=== PATIENT | male | born 2000 | race Caucasian/White ===

== ENCOUNTER 2021-11-03 23:46 | Emergency (ER) | payer SELFPAY ==
[2021-11-04 00:36] LABS: Hemoglobin 15.2 g/dL (13.5-17.5); Mean Corpuscular Hemoglobin 29.4 pg (27.0-33.0); Mean Corpuscular Volume 86.5 fl (81.2-95.1); Mean Platelet Volume 9.4 fl (7.4-10.4); Platelet Count 258 10x3/uL (150-450); RBC Distribution Width 12.2 % (11.5-14.5); Red Blood Cell (RBC) Count 5.17 10x6/uL (4.32-5.72); White Blood Cell (WBC) Count 7.9 10x3/uL (3.5-10.5)
[2021-11-04 00:37] LABS: MDiff Complete? YES
[2021-11-04 00:49] LABS: Actual Bicarbonate (HCO3v) 28 mEq/L (22-28); Base Excess 1.4 mEq/L (-2.0 to +3.0); Chloride (VBG) 99 mmol/L (98-106); Hemoglobin (Hb) 16.1 g/dL (13.2-17.3); Potassium (VBG) 3.85 mmol/L (3.70-5.30); Puncture Site Other Site; Sodium 134.7 mmol/L (133-146); pH (venous) 7.37 (7.32-7.43)
[2021-11-04 00:50] LABS: ALT (SGPT) 14 U/L (8-55); AST (SGOT) 18 U/L (5-34); Albumin 4.4 g/dL (3.5-5.0); Alkaline Phosphatase 54 U/L (40-110); Anion Gap 16 mmol/L (10-20); BUN (Urea Nitrogen) 10 mg/dL (8.9-20.6); Bilirubin, Total 0.6 mg/dL (0.2-1.2); CK (CPK) 117 U/L (30-200); Calc. Creatinine Clearance 0 mL/min (70-130); Calcium 9.1 mg/dL (7.8-10.44); Carbon Dioxide 24 mmol/L (22-29); Chloride 100 mmol/L (98-107); Glucose 210 mg/dL (70-105); Lipase 4 U/L (8-78); Protein, Total 7.4 g/dL (6.0-8.3); Sodium 136 mmol/L (136-145)
[2021-11-04 01:09] LABS: Band 4 % (5-11); Eosinophils 1 % (0-10); Lymphocytes 18 % (21-51); Monocytes 15 % (0-10); Neutrophil 62 % (42-75)
[2021-11-04 01:10] LABS: Platelet Morphology Comment Appears Adequate; RBC Morphology Normal
[2021-11-04 02:06] LABS: SARS-CoV-2 NAA Rapid Test DETECTED (NotDetected)
== END 2021-11-04 01:26 | disposition home or self-care (01) ==
LOC: CSHERS 23:46
DX: U07.1 COVID-19 (principal); E11.9 Type 2 diabetes mellitus without complications; R00.0 Tachycardia, unspecified; Z79.4 Long term (current) use of insulin
CPT/HCPCS: 36415; 36416; 71045; 80053; 82010; 82550; 82805; 83690; 85025; 93005; 96360

== ENCOUNTER 2022-12-22 10:32 | Emergency (ER) | payer OTHER, SELFPAY ==
[2022-12-22] MEDS ORDERED: TETANUS, DIPHTHERIA TOX,ADULT (TDVAX) 0.5 ML VIAL IM ONE (11:18)
[2022-12-22] MEDS ORDERED: Lidocaine 1% (PF) 30 ML VIAL ONE (11:18)
== END 2022-12-22 12:13 | disposition home or self-care (01) ==
LOC: CSHERS 10:32
DX: L03.031 Cellulitis of right toe (principal); L60.0 Ingrowing nail; E10.9 Type 1 diabetes mellitus without complications
CPT/HCPCS: 11750; 90471; 90714; J2001

== ENCOUNTER 2023-02-28 14:44 | Inpatient (IN) | payer OTHER ==
[2023-02-28] MEDS ORDERED: Ondansetron PF 4 MG/2 ML Vial ONE (15:46)
[2023-02-28 15:47] LABS: #Basophils 0.1 10x3/uL (0.0-0.2); #Eosinphils 0.1 10x3/uL (0.0-0.5); #Monocytes 0.7 10x3/uL (0.0-1.1); %Basophils 0.6 % (0.0-2.0); %Eosinophils 0.9 % (0.0-6.0); %Lymphocytes 35.6 % (18.0-47.0); %Monocytes 7.6 % (0.0-10.0); %Neutrophils 54.9 % (40.0-75.0); Hematocrit 46.2 % (38.8-50.0); Hemoglobin 16.2 g/dL (13.5-17.5); Mean Corpuscular HGB CONC 35.1 g/dL (32.0-36.0); Mean Corpuscular Hemoglobin 30.6 pg (27.0-33.0); Mean Corpuscular Volume 87.2 fl (81.2-95.1); Mean Platelet Volume 9.4 fl (7.4-10.4); Platelet Count 330 10x3/uL (150-450); RBC Distribution Width 11.9 % (11.5-14.5)
[2023-02-28] MEDS ORDERED: Insulin Regular 300 UNITS/3 ML VIAL ONE (15:47)
[2023-02-28 16:01] LABS: ALT (SGPT) 14 U/L (8-55); AST (SGOT) 14 U/L (5-34); Albumin 4.5 g/dL (3.5-5.0); Alkaline Phosphatase 83 U/L (40-110); Anion Gap 26 mmol/L (10-20); BUN (Urea Nitrogen) 18 mg/dL (8.9-20.6); Bilirubin, Total 0.8 mg/dL (0.2-1.2); Calc. Creatinine Clearance 0 mL/min (70-130); Calcium 8.9 mg/dL (7.8-10.44); Carbon Dioxide 13 mmol/L (22-29); Chloride 101 mmol/L (98-107); Estimated GFR 84; Globulin 2.6 g/dL (2.4-3.5); Glucose 292 mg/dL (70-105); Lipase 5 U/L (8-78); Magnesium 1.8 mg/dL (1.6-2.6); Potassium 4.6 mmol/L (3.5-5.1); Protein, Total 7.1 g/dL (6.0-8.3); Sodium 135 mmol/L (136-145)
[2023-02-28 16:07] LABS: Troponin I Less than 0.010 ng/mL (< 0.028)
[2023-02-28 17:15] LABS: Actual Bicarbonate (HCO3v) 20.1 mEq/L (22-28); Base Excess -6.2 mEq/L (-2 - +2); Calcium, Ionized (venous) 1.19 mmol/L (1.16-1.32); Chloride (VBG) 101 mmol/L (98-106); Hematocrit-VBG 48 % (42.0-52.0); Hemoglobin (Hb) 16.4 g/dL (13.2-17.3); Potassium (VBG) 3.94 mmol/L (3.70-5.30); Puncture Site Other Site; RapidComm Collect By CBN; Sodium 134.2 mmol/L (133-146); pH (venous) 7.294 (7.32-7.43)
[2023-02-28 20:14] VITALS: BMI 19.7
[2023-02-28] MEDS ORDERED: Sodium Chloride 0.9% 1,000 ML IV PRN ×4 (20:45)
[2023-02-28] MEDS ORDERED: D5 1/2 NS w/20 mEq KCL 1,000 ML IV PRN (20:45)
[2023-02-28] MEDS ORDERED: INSULIN REGULAR IN 0.9 % NACL 100 UNITS in Premix Bag 1 BAG IVPB SCH ×2 (20:45→21:30)
[2023-02-28] MEDS ORDERED: Dextrose 5% in Water 1,000 ML IV PRN (20:45)
[2023-02-28] MEDS ORDERED: NS 0.9% w/ 20 MEQ KCL 1,000 ML/1,000 ML BAG IV PRN ×2 (20:45)
[2023-02-28] MEDS ORDERED: Electrolyte Replacement Protocol FS PRN (20:45)
[2023-02-28] MEDS ORDERED: Glucagon 1 MG/ML KIT IM PRN (20:45)
[2023-02-28] MEDS ORDERED: Dextrose 5 %-0.45 % NaCl 1,000 ML IV PRN (20:45)
[2023-02-28] MEDS ORDERED: ADD ELECTROLYTE REPLACEMENT SET TO PROFILE FS SCH (20:45)
[2023-02-28 21:29] LABS: Bilirubin Neg (Negative); Blood, Urine Negative (Negative); Clarity Clear (Clear); Glucose, Urine (Dipstick) >=1000 mg/dL (Negative); Ketone, Urine 150 mg/dL (Negative); Leukocyte Negative (Negative); Nitrite Negative (Negative); Protein, Urine (Dipstick) 30 mg/dl (Neg-Trace); Specific Gravity, Urine 1.025 (1.005-1.030); Urobilinogen Normal mg/dL (Less than 2)
[2023-02-28] MEDS ORDERED: D5 0.9% NS w/ 20 mEq KCl 1,000 ML IV SCH (21:30)
[2023-02-28] MEDS ORDERED: Dextrose 10% in Water 1,000 ML IV SCH (21:30)
[2023-02-28 22:15] LABS: Bacteria/HPF None Seen HPF (None Seen); RBC/HPF None Seen HPF (0-3); Squamous Epithelial None Seen HPF (0-3); WBC/HPF None Seen HPF (0-3)
[2023-02-28 22:28] LABS: Anion Gap 17 mmol/L (10-20); BUN (Urea Nitrogen) 12 mg/dL (8.9-20.6); Calc. Creatinine Clearance 120 mL/min (70-130); Calcium 7.9 mg/dL (7.8-10.44); Carbon Dioxide 16 mmol/L (22-29); Chloride 105 mmol/L (98-107); Estimated GFR 120; Glucose 217 mg/dL (70-105); Magnesium 1.4 mg/dL (1.6-2.6); Potassium 4.4 mmol/L (3.5-5.1); Sodium 134 mmol/L (136-145)
[2023-03-01] MEDS: Magnesium 2 GM/50 ML(in water) 2 GM in Premix Bag 1 BAG IVPB SCH ×2 (00:08→00:50)
[2023-03-01 02:06] LABS: Anion Gap 11 mmol/L (10-20); BUN (Urea Nitrogen) 8 mg/dL (8.9-20.6); Calc. Creatinine Clearance 136 mL/min (70-130); Calcium 7.7 mg/dL (7.8-10.44); Carbon Dioxide 18 mmol/L (22-29); Chloride 110 mmol/L (98-107); Estimated GFR 127; Glucose 186 mg/dL (70-105); Potassium 3.6 mmol/L (3.5-5.1); Sodium 135 mmol/L (136-145)
[2023-03-01] MEDS: D5 1/2 NS w/20 mEq KCL 1,000 ML IV SCH ×3 (02:23→10:35)
[2023-03-01] MEDS: Dextrose 50% Abboject 50 ML SYRINGE SLOW IVP PRN ×2 (02:51→04:20)
[2023-03-01 06:11] LABS: Anion Gap 10 mmol/L (10-20); BUN (Urea Nitrogen) 6 mg/dL (8.9-20.6); Calc. Creatinine Clearance 136 mL/min (70-130); Calcium 7.4 mg/dL (7.8-10.44); Carbon Dioxide 19 mmol/L (22-29); Chloride 110 mmol/L (98-107); Estimated GFR 127; Glucose 176 mg/dL (70-105); Magnesium 2.4 mg/dL (1.6-2.6); Potassium 3.8 mmol/L (3.5-5.1); Sodium 135 mmol/L (136-145)
[2023-03-01] MEDS ORDERED: Ondansetron PF 4 MG/2 ML Vial IVP PRN (06:25)
[2023-03-01] MEDS ORDERED: Calcium Gluconate 4.6 MEQ in Sodium Chloride 0.9% 100 ML IVPB SCH (06:30)
[2023-03-01] MEDS ORDERED: NS 4.6 GM IVPB SCH (07:30)
[2023-03-01] MEDS ORDERED: CALCIUM GLUC IVPB SCH (07:30)
[2023-03-01] MEDS ORDERED: Dextrose 5% in Water 1,000 ML IV PRN (07:45)
[2023-03-01] MEDS ORDERED: Lantus 1000 UNITS/10 ML VIAL SC SCH ×2 (09:00→14:45)
[2023-03-01 09:58] LABS: Anion Gap 11 mmol/L (10-20); BUN (Urea Nitrogen) 6 mg/dL (8.9-20.6); Calc. Creatinine Clearance 143 mL/min (70-130); Carbon Dioxide 21 mmol/L (22-29); Chloride 109 mmol/L (98-107); Estimated GFR 129; Glucose 142 mg/dL (70-105); Potassium 3.9 mmol/L (3.5-5.1); Sodium 137 mmol/L (136-145)
[2023-03-01 10:13] VITALS: BP 117/80; TEMP 97.6
[2023-03-01] MEDS: FLU VACC QS2023-24(6MOS UP)/PF 60 MCG/0.5 ML SYRINGE IM ONE ×2 (10:32→11:43)
[2023-03-01] MEDS: HumaLOG 300 UNITS/3 ML VIAL SC PRN ×2 (11:11→14:05)
[2023-03-01] MEDS ORDERED: Acetaminophen 325 MG TAB PO PRN (11:47)
[2023-03-01 13:38] LABS: Anion Gap 10 mmol/L (10-20); BUN (Urea Nitrogen) 7 mg/dL (8.9-20.6); Calc. Creatinine Clearance 108 mL/min (70-130); Calcium 8.2 mg/dL (7.8-10.44); Carbon Dioxide 24 mmol/L (22-29); Chloride 105 mmol/L (98-107); Estimated GFR 106; Glucose 256 mg/dL (70-105); Potassium 4.2 mmol/L (3.5-5.1); Sodium 135 mmol/L (136-145)
[2023-03-01] MEDS ORDERED: HumaLOG 300 UNITS/3 ML VIAL SC PRN (14:33)
[2023-03-01 20:20] LABS: Hemoglobin A1c 12.8 % (4.0-6.0)
== END 2023-03-01 18:10 | disposition home or self-care (01) | DRG 639 ==
LOC: CSHERS 14:44 → CSHICU 19:01
PROVIDERS: ADMIT Internal Medicine; ATTEND Internal Medicine
DX: E10.10 Type 1 diabetes mellitus with ketoacidosis without coma (principal); Z79.82 Long term (current) use of aspirin
CPT/HCPCS: 36415; 36416; 71045; 80048; 80053; 81003; 81015; 82010; 82805; 83036; 83690; 83735; 84100; 84484; 85025; 90471; 90686; 93005; 96361; 96374; G0008; J0613; J1815; J2405; J3475; J3480; J7999